=== PATIENT | female | born 1945 | race Caucasian/White ===

== ENCOUNTER → 2019-07-01 | Outpatient (CLI) | payer OTHER ==
[~2019-07-01] MED LIST: ATEN25TA PO; ATOR10TA60 PO; CARV25TA2 PO; DILT60TA3 PO; LISI-334 PO; NAPR250T PO; OXYC1TAB15 PO; POTA10TA12 PO
--- NOTE | 2019-07-01 15:22 | KCIC ---
LUMBAR SPINE WO CONTRAST Date: 07/01/2019 12:30 PM Indication: Low back pain with left lower extremity radiculopathy Comparison: None. Technique: Multi-planar multi-weighted magnetic resonance imaging of the lumbar spine was performed without intravenous contrast using the standard lumbar spine protocol. FINDINGS: Postsurgical changes of posterior decompression and instrumentation at L4-5. Left convex lumbar curvature. No acute fracture. Mild to moderate multilevel degenerative disc desiccation and disc height loss. Degenerative endplate edema at L3-4. The conus terminates at a normal level. No abnormal signal is seen within the visualized distal spinal cord. No clumping of intrathecal nerve roots. Sacral Tarlov cysts. Small bilateral renal cysts. T12-L1: No disc bulge. No facet arthropathy. No significant spinal stenosis or neural foraminal narrowing. L1-L2: Disc bulge. No facet arthropathy. No significant spinal stenosis or neural foraminal narrowing. L2-L3: Disc bulge with left far lateral protrusion. Mild facet arthropathy. Mild spinal stenosis. No significant neural foraminal narrowing. L3-L4: Disc bulge with right far lateral protrusion. Moderate facet arthropathy. Ligament flavum thickening. Moderate spinal stenosis. Mild lateral recess narrowing. Moderate to severe right and mild left neural foraminal narrowing. L4-L5: Left hemilaminectomy. Left far lateral protrusion. No spinal stenosis. Mild right and moderate left neuroforaminal narrowing. L5-S1: Disc bulge with left far lateral protrusion. Ligamentum flavum thickening. Mild spinal stenosis. Mild left lateral recess narrowing. Moderate left neural foraminal narrowing. IMPRESSION: Marked levoscoliosis and moderate lumbar spondylosis, detailed level by level above. Electronically signed by: Jovani Mcgowan MD (07/01/2019 3:19 PM) [id number]
== END | disposition home or self-care (01) ==
LOC: KCIC MRI 12:28
PROVIDERS: ATTEND Family Medicine
DX: M51.16 Intervertebral disc disorders with radiculopathy, lumbar region (principal); N28.1 Cyst of kidney, acquired; M12.88 Other specific arthropathies, not elsewhere classified, other specified site; M48.062 Spinal stenosis, lumbar region with neurogenic claudication; M85.68 Other cyst of bone, other site
CPT/HCPCS: 72148

== ENCOUNTER → 2020-03-03 | Outpatient (CLI) | payer MEDICARE, OTHER ==
[~2020-03-03] MED LIST changes: +APIX5TAB PO; +CLON0.1T PO; +DICL75TA PO; +GABA300C18 PO; +HYDR-2769 PO; +LATA2.5D3 EACHEYE; +LISI-130 PO
--- NOTE | 2020-03-03 14:47 | PDOC2 ---
INITIAL PAIN CONSULT DATE OF SERVICE: DOS: DATE: 03/03/20 TIME: 14:35 CHIEF COMPLAINT: Chief Complaint: Low back and left lower extremity pain HISTORY OF PRESENT ILLNESS: Ms. Torre is 74-year-old female presents with history of low back left lower extremity pain for many years status post lumbar discectomy and fusion L4-5 in 2016 patient reports that the pain never went away still has significant pain in the low back in the left lower extremity without improvement after surgery patient which is getting worse with walking standing changing positions is walking with a cane in her right hand describes the pain is sharp and shooting radiating changes during the day worse with activity tingling burning and cramping patient reports that it is generally not awaken her from sleep at night much better with sitting or laying down does not affect her bowel bladder control it does affect ability to walk significantly and again is using a cane in her right hand she had surgery at [facility] with Dr. Kaur & has had previous chiropractic treatment, exercises, physical therapy continues to do the exercise ;she also takes hydrocodone routinely for the pain which is helpful by only about 50%. Patient rates her disability rating of 0-10 10 being the worst as a 10 with family home responsibilities recreation and occupation 8 with social activity 5 with self-care 0 with life support activities Patient did have a MRI scan of the lumbar spine dated June 2019 showing disc bulge with left far lateral protrusion at L2-3 L3-4 disc bulge with right far lateral protrusion L4-5 left hemilaminectomy with far left lateral protrusion L5-S1 shows disc bulge with far left lateral protrusion and mild spinal stenosis. PAST MEDICAL HISTORY: PMH: Hypertension hyperlipidemia arthritis scoliosis blood clots but postsurgical, PSVT. PREVIOUS SURGERIES: Past Surgical Hx: Appendectomy 1978 ORIF ulna 1998 right knee scope 2009 lumbar laminectomy 2016 CURRENT MEDICATIONS: Current Meds: Active Scripts Medications Dose Route/Sig Max Daily Dose Days Date Category Latanoprost 2.5 Ml Drops 1 Drop EACHEYE QHS 03/03/20 Reported Hydrocodone-Apap 10-325 (Hydrocodone Bit/Acetaminophen) 1 Tab Tablet 1 Tab PO PRN Q6HRS PRN 03/03/20 Reported Eliquis (Apixaban) 5 Mg Tablet 5 Mg PO BID 03/03/20 Reported Lisinopril 40 Mg Tablet 1 Tab PO DAILY 03/03/20 Reported Gabapentin (Gabapentin) 300 Mg Capsule 300 Mg PO BID 03/03/20 Reported Clonidine Hcl 0.1 Mg Tablet 0.1 Mg PO PRN PRN 03/03/20 Reported Diclofenac Sodium 75 Mg Tablet.dr 1 Tab PO BID 03/03/20 Reported Potassium Chloride (Potassium Chloride) 10 Meq Capsule.er 1 Cap PO BID 03/26/15 Reported ALLERGIES; Allergies: Coded Allergies: No Known Drug Allergies (Unverified , 12/18/13) FAMILY HISTORY: Family Hx: Significant for cancers SOCIAL HISTORY: Social Hx: Patient is not drink alcohol does not smoke does not use any illegal illicit or recreational drugs is lives with her spouse lives locally in [facility] has 1 great grandchild living with them and reports that she is currently retired. REVIEW OF SYSTEMS: ROS: Patient review of systems is positive for those items mentioned in his present illness all systems reviewed otherwise negative complete formal document on patient's chart PHYSICAL EXAM: VS: Blood pressure is 139/88 pulse 52 respirations 18 temperature is 90.1 F weight is 1 4 9 pounds PE: PHYSICAL EXAMINATION: GENERAL: The patient is awake, alert, oriented, appropriate, very pleasant in demeanor HEENT: normocephalic, atraumatic. Extraocular movements are intact and symmetrical. Oral cavity: Mucous membranes moist and pink. Dentition is intact. NECK: anterior throat supple without palpable lymphadenopathy noted. Swallow reflex symmetrical. CHEST: normal on inspection. Breath sounds are clear bilaterally no rales rhonchi or wheezes auscultated.. HEART: Shows S1, S2 clear. No murmurs auscultated. ABDOMEN: Soft, nontender, nondistended. No palpable organomegaly is noted. No rebound or guarding demonstrated. BACK: Shows spine grossly with leftward lumbar scoliosis and minor hypertrophy of the lower thoracic and upper middle lower lumbar paraspinous musculature compared to the right.. Normal-appearing cervical lordotic curvature. There is slightly increased thoracic kyphosis, some minor flattening of the lumbar lordotic curvature. Lumbar paraspinous muscles show hypertrophy on the left on inspection, on palpation shows some moderate tenderness diffusely throughout the upper, middle and lower distribution of the paraspinous muscles bilaterally and also into the lower thoracic paraspinous musculature, but without specific trigger points, without radiation of pain. The patient has good rotational motion of the lumbar spine, both laterally as well as extension and flexion without significant difficulty. No tenderness over the spinous processes, sacrum or sacroiliac regions. Well-healed surgical scarring is noted in the midline. EXTREMITIES: Lower extremities show deep tendon reflexes 1+ in the patellar and tendo calcaneus tendons. Motor exam is 5 on a scale of 5 with right dorsiflexion, extension, quadriceps and hamstring flexion and 4/5 on the left. Peripheral pulses are 1+ posterior tibial. No peripheral edema is noted bilaterally. Lower extremities are warm and dry to touch, equal in color and appearance. Straight leg raise noted to be negative on the right, left side is positive at 35 degrees. Gaenslen's and Misael's maneuvers are negative as well. The patient is able to stand, stand on her toes but loses balance quickly when standing with all of her weight on her left leg. Walks with a antalgic g ait does favor the left lower extremity significantly and is using a cane to ambulate in the right hand.. SKIN: Shows warm and dry, good turgor. No edema. No sores, rashes or bruising throughout. IMPRESSION: Impression: This is a 74-year-old female with a long history of low back and left lower extremity pain status post lumbar laminectomy with fusion 2015 with persistent radiculopathy in the left lower extremity in a L5-S1 dermatomal distribution. Options were discussed with the patient including conservative medical management and physical therapies interventional techniques, and she would like to pursue interventional techniques. We discussed a lumbar epidural steroid injection using descriptions as well as anatomical models to describe the procedure. We will first wait for clearance from her lpn or medical assistant to hold Eliquis for 3 days prior to potential injection if deemed safe and appropriate will have patient return while holding this and plan on lumbar epidural steroid injection at that time. We also discussed potential of a spinal cord stimulator and patient was given some information regarding this today as well. Patient to follow-up in approximately 1 week as scheduled. CIPRIANO VILLELA MD Mar 03, 2020 14:47
== END | disposition home or self-care (01) ==
LOC: PNCL 12:39
PROVIDERS: ATTEND Anesthesiology
DX: M54.5 Low back pain (principal); M48.061 Spinal stenosis, lumbar region without neurogenic claudication; M79.662 Pain in left lower leg; I10 Essential (primary) hypertension; E78.5 Hyperlipidemia, unspecified; M19.90 Unspecified osteoarthritis, unspecified site; Z98.890 Other specified postprocedural states; Z79.899 Other long term (current) drug therapy
CPT/HCPCS: G0463

== ENCOUNTER → 2020-03-19 | Outpatient (CLI) | payer MEDICARE, OTHER ==
[~2020-03-19] MED LIST changes: +IOHEXOL 180 MG/ML 10 ML VIAL. ONE; +methylPREDNISolone ACETATE 40 MG/ML VIAL. ONE; +methylPREDNISolone ACETATE 80 MG/ML VIAL. ONE
--- NOTE | 2020-03-19 11:17 | PDOC ---
Progress Note - Pain Clinic Date of Service: DOS: DATE: 03/19/20 TIME: 11:13 Diagnosis: Dx: Lumbar to colopathy with lumbar degenerative disc disease and lumbar spinal stenosis with post lumbar laminectomy syndrome History or Present Illness: HPI: 74-year-old female returns follow-up status post initial evaluation and preauthorization with clearance to hold her Eliquis for 3 days. Patient has obt ained this from her intake nurse and has been off of the Eliquis now for 3 days returns still with significant pain low back and into the left lower extremity. Reports pain is a 9 on scale of 10 is worse of the past week 6 on average to its least is a 6 today. Patient reported sharp tingling stabbing radiating severe in the posterior gluteus and the left side posterior left thigh left lower leg into the foot on the left side with walking standing changing positions better with sitting and laying down does not awaken her from sleep at night. Patient reports no new motor or sensory deficits no new bowel or bladder complaints. Physical Exam: VS: Blood pressure is 117/71 pulse 50 respirations are 20 temperature 97.8 F weight is 147 pounds PE: PHYSICAL EXAMINATION: GENERAL: The patient is awake, alert, oriented, appropriate, very pleasant demeanor HEENT: Shows normocephalic, atraumatic. Extraocular movements are intact and symmetrical. Oral cavity: Mucous membranes moist and pink. NECK: Shows anterior throat supple without palpable lymphadenopathy noted. Swallow reflex symmetrical. CHEST: Shows normal on inspection. Breath sounds are clear bilaterally, no rales rhonchi or wheezes auscultated. HEART: Shows S1, S2 clear. No murmurs auscultated. ABDOMEN: Soft, nontender, nondistended. No palpable organomegaly is noted. No rebound or guarding demonstrated. BACK: Shows spine grossly in the midline. Normal-appearing cervical lordotic curvature. There is slightly increased thoracic kyphosis, some minor flattening of the lumbar lordotic curvature. Lumbar paraspinous muscles show symmetrical on inspection, on palpation shows some moderate tenderness diffusely throughout the upper, middle and lower distribution of the paraspinous muscles bilaterally without specific trigger points, without radiation of pain. The patient has good rotational motion of the lumbar spine, both laterally as well as extension and flexion without significant difficulty. No tenderness over the spinous processes, sacrum or sacroiliac regions. EXTREMITIES: Lower extremities show deep tendon reflexes 1+ in the patellar and tendo calcaneus tendons. Motor exam is 5 on a scale of 5 with right dorsiflexion, extension, quadriceps and hamstring flexion and 4/5 on the left. Peripheral pulses are 1+ posterior tibial. No peripheral edema is noted bilaterally. Lower extremities are warm and dry to touch, equal in color and appearance. SKIN: Shows warm and dry, good turgor. No edema. No sores, rashes or bruising throughout. Procedure: Procedure: Options were discussed with the patient. Patient chart was reviewed as her current medication regimen updated current review of systems updated today as well. We will proceed with a lumbar epidural steroid injection today. Risks are again discussed including but not limited to bleeding infection possibility of epidural hematoma subsequent neurological compromise dural puncture headache spinal cord and or nerve damage side effects of steroid medication and poor results regarding pain control. Patient understands wished to proceed. Patient return to clinic in possibly 2 weeks for follow-up was counseled as [facility] and side effects be aware of. Medication Injected: Med Injected: Procedure is lumbar epidural steroid injection under local anesthetic using sterile prep and drape at the L5-S1 level using C-arm fluoroscopic guidance in both AP and lateral views medications injected is 120 mg Depo-Medrol + 10 mL preservative-free normal saline and 2 mL contrast- condition at discharge is stable patient tolerated procedure well had no complications. Condition at Discharge: Condition at Discharge: Condition at discharge is stable patient, procedure well had no complications. CIPRIANO VILLELA MD Mar 19, 2020 11:17
== END | disposition home or self-care (01) ==
LOC: PNCL 10:23
PROVIDERS: ATTEND Anesthesiology
DX: M51.16 Intervertebral disc disorders with radiculopathy, lumbar region (principal); M48.061 Spinal stenosis, lumbar region without neurogenic claudication; I10 Essential (primary) hypertension; E78.5 Hyperlipidemia, unspecified; Z79.899 Other long term (current) drug therapy
CPT/HCPCS: 62323; J1030; J1040; Q9965